=== PATIENT | male | born 1965 | race Caucasian/White ===

== ENCOUNTER 2019-08-13 09:59 | Outpatient (CLI) | payer MEDICAID ==
[~2019-08-13] VITALS: Ht 226.1 cm; Wt 201.2 kg
[2019-08-13] MEDS ORDERED: aminophylline 250mg/10ml inj. IV PRN (11:35)
[2019-08-13] MEDS ORDERED: regadenoson 0.4mg/5ml syringe IV ONE (11:35)
[2019-08-13] MEDS ORDERED: nitroGLYCERIN 0.4mg SUBLingual tab SL PRN (11:35)
[2019-08-13] MEDS ORDERED: normal saline 500ml IV soln 500 ML IV ONE (11:35)
[2019-08-13 12:34] VITALS: BP 130/78
[2019-08-13 12:44] VITALS: BP 126/75
[2019-08-13 12:45] VITALS: BP 145/75
[2019-08-13 12:46] VITALS: BP 130/78
[2019-08-13 12:47] VITALS: BP_SYST 139; BP_SYST 146; BP_DIAS 75; BP_DIAS 78
== END 2019-08-13 23:59 | disposition home or self-care (01) ==
LOC: RAD 09:59
PROVIDERS: ATTEND Internal Medicine Interventional Cardiology
DX: I35.8 Other nonrheumatic aortic valve disorders (principal); I50.30 Unspecified diastolic (congestive) heart failure; I25.9 Chronic ischemic heart disease, unspecified; E66.01 Morbid (severe) obesity due to excess calories; Z87.891 Personal history of nicotine dependence
CPT/HCPCS: 78452; 93017; 93306; A9500; J0280; J2785; J7040

== ENCOUNTER 2019-10-26 13:33 | Day surgery (SDC) | payer MEDICAID ==
[~2019-10-26] VITALS: Ht 190.5 cm; Wt 199.9 kg
[2019-10-26] VITALS (8 sets, daily range): BP systolic 129–148; BP diastolic 68–84
[2019-10-26] MEDS ORDERED: diphenhydrAMINE 25mg capsule PO PRN (14:15)
[2019-10-26] MEDS ORDERED: LORazepam 0.5 MG tablet PO PRN (14:15)
[2019-10-26] MEDS ORDERED: normal saline 1,000 ML IV SCH (14:15)
[2019-10-26] MEDS ORDERED: AMLO5TAB PO (14:49)
[2019-10-26] MEDS ORDERED: ASPI-974 PO (14:49)
[2019-10-26] MEDS ORDERED: IBUP-1986 PO (14:49)
[2019-10-26] MEDS ORDERED: ALLO100T PO (14:49)
[2019-10-26] MEDS ORDERED: FURO-149 PO (14:49)
[2019-10-26] MEDS ORDERED: LEVO100T PO (14:49)
[2019-10-26] MEDS ORDERED: ALBU8HFA PO (14:49)
[2019-10-26] MEDS ORDERED: TRAM50TA2 PO (14:49)
[2019-10-26] MEDS ORDERED: FLO44IN IH (14:49)
[2019-10-26] MEDS ORDERED: OMEP-297 PO (14:49)
[2019-10-26] MEDS ORDERED: LOSA100T57 PO (14:49)
[2019-10-26] MEDS ORDERED: POTA8TAB3 (14:49)
[2019-10-26] MEDS ORDERED: GABA600T13 PO (14:49)
[2019-10-26] MEDS ORDERED: LIDOcaine 1% (10mg/ml)w/preservative injection 20ml MDV ONE (17:52)
[2019-10-26] MEDS ORDERED: fentaNYL/PF 50MCG/1 ML 2ML syringe ONE ×2 (17:52→19:00)
[2019-10-26] MEDS ORDERED: iohexol 350MG/ML 100ml bottle IV ONE (17:52)
[2019-10-26] MEDS ORDERED: midazolam 2 mg/2 ml injection ONE ×2 (17:52→18:39)
[2019-10-26] MEDS ORDERED: normal saline 1000ml 1,000 ML IV SCH (20:00)
[2019-10-26] MEDS ORDERED: HYDROcodone/acetaminophen 5mg/325mg tablet PO PRN (20:00)
[2019-10-26] MEDS ORDERED: ondansetron/PF 4mg/2ml inj IV PRN (20:00)
[2019-10-26] MEDS ORDERED: HYDROcodone/acetaminophen 10/325mg tab PO PRN (20:05)
[2019-10-26] MEDS ORDERED: OXAZEpam 15mg capsule PO PRN (20:05)
[2019-10-26] MEDS ORDERED: proCHLORperazine 10 MG/2 ml inj IV PRN (20:05)
== END 2019-10-26 21:15 | disposition home or self-care (01) ==
LOC: SSTAY O 13:33
PROVIDERS: ATTEND Internal Medicine Interventional Cardiology
DX: R94.39 Abnormal result of other cardiovascular function study (principal); I25.10 Atherosclerotic heart disease of native coronary artery without angina pectoris; J44.9 Chronic obstructive pulmonary disease, unspecified; G47.33 Obstructive sleep apnea (adult) (pediatric); I11.0 Hypertensive heart disease with heart failure; I50.9 Heart failure, unspecified; E03.9 Hypothyroidism, unspecified; M10.9 Gout, unspecified; M19.90 Unspecified osteoarthritis, unspecified site; E66.01 Morbid (severe) obesity due to excess calories; Z68.43 Body mass index [BMI] 50.0-59.9, adult; Z87.891 Personal history of nicotine dependence; Z79.899 Other long term (current) drug therapy; Z79.82 Long term (current) use of aspirin; Z86.73 Personal history of transient ischemic attack (TIA), and cerebral infarction without residual deficits; Z88.0 Allergy status to penicillin
CPT/HCPCS: 93005; 93458; 99152; 99153; C1769; J1644; J2001; J2250; J3010; J7030; Q0163; Q9967; A4620; A6258